=== PATIENT | male | born 1940 | race Caucasian/White ===

== ENCOUNTER → 2019-08-18 11:43 | Outpatient (CLI) | payer MEDICARE, SELFPAY ==
[2019-08-18 13:03] LABS: Add Manual Diff / Slide Review NO; Basophils Absolute Auto 100 /uL (0-100); Basophils Percent Auto 1.3 % (0-2); Eosinophils Absolute Auto 100 /uL (0-450); Eosinophils Percent Auto 1.8 % (2-4); Hematocrit 41.8 % (41-53); Hemoglobin 14.2 g/dL (13.5-17.5); Lymphocytes Absolute Auto 1300 /uL (1100-4500); Lymphocytes Percent Auto 23.9 % (25-40); Mean Corpuscular Hemoglobin 31.5 PG (26-34); Mean Corpuscular Volume 92.7 fL (80-100); Monocytes Absolute Auto 700 /uL (0-900); Monocytes Percent Auto 12.6 % (3-14); Neutrophils Absolute Auto 3200 /uL (1500-7000); Neutrophils Percent Auto 60.4 % (50-75); Platelet Count 120 X10^3/uL (150-400); Red Cell Distribution Width 13.7 % (11.6-14.8); White Blood Cell Count 5.3 X10^3/uL (4.5-11.0)
[2019-08-18 14:06] LABS: Alanine Aminotransferase 12 IU/L (<50); Albumin Globulin Ratio 1.7 (1.0-2.8); Alkaline Phosphatase 78 U/L (38-126); Aspartate Aminotransferase 18 IU/L (17-59); BUN Creatinine Ratio 16.7 (6-22); Bilirubin Total 0.5 mg/dL (0.2-1.3); Blood Urea Nitrogen 20 mg/dL (9-20); Carbon Dioxide 26 mmol/L (22-32); Chloride 107 mmol/L (98-107); Estimated Glomerular Filt Rate 58.7 mL/min (>60); Globulin 2.4 g/dL (1.7-4.1); Glucose 79 mg/dL (80-110); HEMOLYSIS < 15 (0-50); Potassium 4.5 mmol/L (3.4-5.1); Sodium 140 mmol/L (137-145); Total Protein 6.4 g/dL (6.3-8.2)
[2019-08-18 14:35] LABS: TSH w/ Reflex to FT4 1.38 uIU/mL (0.47-4.68)
[2019-08-18 14:55] LABS: Vitamin B12 964 pg/mL (239-931)
[2019-08-22 16:12] LABS: Levetiracetam Keppra 15.3 mcg/mL (12.0-46.0)
== END ==
PROVIDERS: PCP Internal Medicine; Visit Provider Internal Medicine
DX: G40.509 Epileptic seizures related to external causes, not intractable, without status epilepticus (principal); E53.8 Deficiency of other specified B group vitamins; G25.2 Other specified forms of tremor
CPT/HCPCS: 36415; 80053; 80177; 82607; 84443; 85025

== ENCOUNTER → 2020-06-28 16:08 | Outpatient (ROUT) | payer MEDICARE, SELFPAY ==
[2020-06-28 17:13] LABS: Add Manual Diff / Slide Review NO; Basophils Absolute Auto 0 /uL (0-100); Basophils Percent Auto 0.9 % (0-2); Eosinophils Absolute Auto 100 /uL (0-450); Eosinophils Percent Auto 1.6 % (2-4); Hemoglobin 14.6 g/dL (13.5-17.5); Lymphocytes Absolute Auto 1200 /uL (1100-4500); Lymphocytes Percent Auto 23.1 % (25-40); Mean Corpuscular Hemoglobin 31.5 PG (26-34); Mean Corpuscular Volume 92.6 fL (80-100); Monocytes Absolute Auto 500 /uL (0-900); Monocytes Percent Auto 10.2 % (3-14); Neutrophils Absolute Auto 3300 /uL (1500-7000); Neutrophils Percent Auto 64.2 % (50-75); Platelet Count 114 X10^3/uL (150-400); Red Blood Cell Count 4.64 X10^6/uL (4.5-5.9); Red Cell Distribution Width 13.7 % (11.6-14.8); White Blood Cell Count 5.2 X10^3/uL (4.5-11.0)
[2020-06-28 17:15] LABS: Alanine Aminotransferase 14 IU/L (<50); Albumin 3.9 g/dL (3.5-5.0); Albumin Globulin Ratio 1.4 (1.0-2.8); Alkaline Phosphatase 100 U/L (38-126); Aspartate Aminotransferase 21 IU/L (17-59); BUN Creatinine Ratio 18.2 (6-22); Bilirubin Total 0.6 mg/dL (0.2-1.3); Blood Urea Nitrogen 20 mg/dL (9-20); Calcium 8.5 mg/dL (8.4-10.2); Carbon Dioxide 29 mmol/L (22-32); Chloride 107 mmol/L (98-107); Estimated Glomerular Filt Rate > 60.0 mL/min (>60); Globulin 2.7 g/dL (1.7-4.1); Glucose 126 mg/dL (80-110); HEMOLYSIS < 15 (0-50); Sodium 142 mmol/L (137-145); Total Protein 6.6 g/dL (6.3-8.2)
[2020-06-28 17:45] LABS: TSH w/ Reflex to FT4 1.79 uIU/mL (0.47-4.68)
== END ==
PROVIDERS: PCP Internal Medicine; Visit Provider Internal Medicine
DX: G40.509 Epileptic seizures related to external causes, not intractable, without status epilepticus (principal)
CPT/HCPCS: 80053; 80177; 84443; 85025

== ENCOUNTER → 2020-08-29 16:51 | Outpatient (CLI) | payer MEDICARE, SELFPAY ==
[2020-08-29 17:32] LABS: Influenza A - CEPHEID Flu A NEGATIVE (NEGATIVE); Influenza B - CEPHEID Flu B NEGATIVE (NEGATIVE)
[2020-08-29 17:52] LABS: COVID19 -Nasal RAPID Negative (Negative)
== END ==
PROVIDERS: PCP Internal Medicine; Visit Provider Physician Assistant
DX: Z11.59 Encounter for screening for other viral diseases (principal); R05 Cough; R53.83 Other fatigue
CPT/HCPCS: 87502; 87635

== ENCOUNTER 2020-08-29 16:56 | Emergency (ER) | payer MEDICARE, SELFPAY ==
[2020-08-29 17:09] VITALS: BP 123/70; PULSE 76; RESP 16; TEMP 36.7; O2SAT 98
--- NOTE | 2020-08-29 17:45 | DI.RAD.S_ITS ---
PROCEDURE: XR CHEST 2V INDICATIONS: Cough TECHNIQUE: 2 views of the chest were acquired. COMPARISON: DIEUDONNE Esquivel, CHEST 2 VIEW, 09/16/2011, 9:34. FINDINGS: Surgical changes and devices: None. Lungs and pleura: Scattered subsegmental scarring and/or atelectasis. No acute consolidation. High-density presumed calcified granuloma projects in the left upper lobe. No pleural effusions or pneumothorax. Mediastinum: Mediastinal contours are normal. Heart size is normal. Bones and chest wall: No suspicious bony abnormalities. Soft tissues appear unremarkable. IMPRESSION: No acute disease. Dictated by: Ozzie Dow M.D. on 08/29/2020 at 18:11 Approved by: Ozzie Dow M.D. on 08/29/2020 at 18:11
[2020-08-29 18:30] VITALS: PULSE 63; O2SAT 94
[2020-08-29 18:37] VITALS: O2SAT 93
[2020-08-29 18:41] VITALS: BP 117/60
--- NOTE | 2020-08-29 19:39 | ED_ITS ---
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 Patient's states that she noticed a small cough intermittently throughout the day that started last evening and he has coughed a few times throughout the day. She states she was worried about COVID-19, last time he had a cough he developed a sinus infection. She also stated he took a longer nap today and ate less at lunchtime.. Patient's denies any other symptoms such as fever, vomiting, diarrhea, or any increased confusion. Influenza and COVID 19 swab was done at the walk-in clinic. Related Data Home Medications Medication Instructions Recorded Confirmed ASCORBIC ACID (#VITAMIN C) 500 mg PO TID #0 09/16/11 CYANOCOBALAMIN (VITAMIN B-12) 1,000 mcg SUBLINGUAL QDAY #0 09/16/11 (Vitamin B-12) LUTEIN EXTRACT/ZEAXANTHIN EXT 1 sgl PO #0 09/16/11 (Lutein 15 MG Softgel) donepezil [Aricept] 10 mg PO QDAY #0 09/16/11 Review of Systems <RUBEN Philip - Last Filed: 08/29/20 20:45> Review of Systems Narrative: REVIEW OF SYSTEMS: GENERAL: Denies fevers. HENT: No head trauma. RESPIRATORY: Reports cough, see HPI. GASTROINTESTINAL: No nausea, vomiting, diarrhea, or constipation. MUSCULOSKELETAL: No injury. INTEGUMENTARY: No rash. NEURO: No increased confusion. Patient History <RUBEN Philip - Last Filed: 08/29/20 20:45> Medical History Dementia Social History Smoking Status: Never smoker Smoking Status: Never smoker alcohol intake frequency: other Substance Use Type: does not use Exam <RUBEN Philip - Last Filed: 08/29/20 20:45> Initial Vital Signs Initial Vital Signs: Vital Signs Temperature 98.1 F 08/29/20 17:09 Pulse Rate 76 08/29/20 17:09 Respiratory Rate 16 08/29/20 17:09 Blood Pressure 123/70 08/29/20 17:09 Pulse Oximetry 98 08/29/20 17:09 PHYSICAL EXAMINATION: GENERAL: Awake, alert. Oriented to person. Orientation is patient's baseline per . HENT: Normocephalic, atraumatic. Oropharynx without erythema. EYES: Conjunctiva pink, sclera white, no periorbital swelling. No discharge. CHEST: Normal to inspection and without deformities. CARDIOVASCULAR: S1 and S2 sounds normal. Regular rate and rhythm, no murmurs, clicks, or bruits. RESPIRATORY: Normal respiratory rate, trachea midline, airway patent. No stridor, nasal flaring or accessory muscle use. Able to speak in full sentences. Lungs are clear in all jalloh without wheeze, rhonchi, or crackles. No cough observed. MUSCULOSKELETAL: Normal gait and coordination. Equal tone and mass bilaterally. ABD: Abdomen soft and nontender. EXTREMITIES: Moves all extremities. SKIN: Warm, dry, soft, appropriate color for ethnicity. No lesions, rashes, or wounds to visualized areas. NEURO: Alert. <Valeria Girard DO - Last Filed: 08/30/20 07:40> Initial Vital Signs Initial Vital Signs: Vital Signs Temperature 98.1 F 08/29/20 17:09 Pulse Rate 76 08/29/20 17:09 Respiratory Rate 16 08/29/20 17:09 Blood Pressure 123/70 08/29/20 17:09 Pulse Oximetry 98 08/29/20 17:09 Course <RUBEN Philip - Last Filed: 08/29/20 20:45> Orders Ordered: ED Orders 08/29/20 17:45 XR chest 2V Stat Vital Signs Vital signs: Vital Signs - 8 hr 08/29/20 17:09 08/29/20 18:30 08/29/20 18:37 Temperature 98.1 F Pulse Rate 76 63 Respiratory Rate 16 Blood Pressure 123/70 Pulse Oximetry 98 94 93 08/29/20 18:41 Temperature Pulse Rate Respiratory Rate Blood Pressure 117/60 Pulse Oximetry <Valeria C WalkernikiDO - Last Filed: 08/30/20 07:40> Orders Ordered: ED Orders 08/29/20 17:45 XR chest 2V Stat Vital Signs Vital signs: Vital Signs - 8 hr 08/29/20 17:09 08/29/20 18:30 08/29/20 18:37 Temperature 98.1 F Pulse Rate 76 63 Respiratory Rate 16 Blood Pressure 123/70 Pulse Oximetry 98 94 93 08/29/20 18:41 Temperature Pulse Rate Respiratory Rate Blood Pressure 117/60 Pulse Oximetry [facility] - URI/Sore Throat <RUBEN Philip - Last Filed: 08/29/20 20:45> Medical Records Attestation: I reviewed the patient's medical records. Lab Data Attestation: I reviewed the patient's lab results. Imaging Data Chest x-ray: Radiologist's Impression: [address] [id number] ReportSigned Patient: Sujit Allen LMR#: [id number]: 2Acct:[id number]/Sex: 80 / MDate of Service: 08/29/20Loc: EDAccession Number: [id number] Procedure: XR chest 2V Ordering Provider: Amarilys Ge PROCEDURE: XR CHEST 2V INDICATIONS: Cough TECHNIQUE: 2 views of the chest were acquired. COMPARISON: DIEUDONNE Esquivel, CHEST 2 VIEW, 09/16/2011, 9:34. FINDINGS: Surgical changes and devices: None. Lungs and pleura: Scattered subsegmental scarring and/or atelectasis. No acute consolidation. High-density presumed calcified granuloma projects in the left upper lobe. No pleural effusions or pneumothorax. Mediastinum: Mediastinal contours are normal. Heart size is normal. Bones and chest wall: No suspicious bony abnormalities. Soft tissues appear unremarkable. IMPRESSION: No acute disease. Dictated by: Ozzie Dow M.D. on 08/29/2020 at 18:11 Approved by: Ozzie Dow M.D. on 08/29/2020 at 18:11 [facility] Narrative Medical decision making narrative: 80-year-old male presenting to the emergency department for a cough. 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 Patient is hemodynamically stable, afebrile, non tachycardic, oxygen saturation within normal limits. states is at baseline mentation. He is negative for influenza and COVID-19 which was swabbed the clinic. Chest x-rays negative for any concerning infectious etiology. I discussed with life that this is most likely viral given nontoxic appearance, mild symptoms, and short duration since onset of symptoms. No antibiotics warranted at this time. Less concern for other etiology such as abdominal issues due to lack of abdominal pain, no vomiting, no increased confusion, or any other concerns. Return precautions given for new or worsening symptoms. Patient agreed to plan of care verbalized understanding. Discharge Plan Departure Patient Disposition: Home Clinical Impression: Cough Instructions: DI for Cough -- Adult Activity Restrictions/Additional Instructions: Thank you for entrusting me with your care today. As discussed, your chest x- ray, COVID test and influenza tests are negative. I suspect this is most likely just a virus. Please follow-up with your primary care provider in the next week for further evaluation. Return emergency department for any new or worsening symptoms. Prescriptions: No Action donepezil [Aricept] 10 MG tablet 10 mg PO QDAY Qty: 0 RF: 0 LUTEIN EXTRACT/ZEAXANTHIN EXT (Lutein 15 MG Softgel) 1 sgl PO Qty: 0 RF: 0 ASCORBIC ACID (#VITAMIN C) 500 mg PO TID Qty: 0 RF: 0 CYANOCOBALAMIN (VITAMIN B-12) (Vitamin B-12) 1,000 mcg Sublingual QDAY Qty: 0 RF: 0 Referrals: Willard Frey MD [Primary Care Provider] - <Valeria Girard DO - Last Filed: 08/30/20 07:40> Cosign ED Attending Cosignature Attestation: I was immediately available in the department for consultation. This documentation has been reviewed and I agree with assessment and plan. Supervised by Valeria Girard DO
== END 2020-08-29 18:57 | disposition home or self-care (01) ==
PROVIDERS: Emergency Provider Nurse Practitioner; PCP Internal Medicine
DX: R05 Cough (principal); F03.90 Unspecified dementia, unspecified severity, without behavioral disturbance, psychotic disturbance, mood disturbance, and anxiety; R44.3 Hallucinations, unspecified; Z20.828 Contact with and (suspected) exposure to other viral communicable diseases; R53.83 Other fatigue
CPT/HCPCS: 71046; 87502; 87635; 99283

== ENCOUNTER 2021-03-20 21:03 | Emergency (ER) | payer MEDICARE, SELFPAY ==
[2021-03-20] VITALS (30 sets, daily range): BP systolic 104–125; BP diastolic 60–74; PULSE 62–84; RESP 12–18; TEMP 36.4; O2SAT 96–100
--- NOTE | 2021-03-20 21:53 | ED_ITS ---
HPI - General Adult General Chief complaint: Syncope Stated complaint: Syncope Time Seen by Provider: 03/20/21 21:39 Source: EMS Mode of arrival: EMS Limitations: altered mental status History of Present Illness HPI narrative: Patient is a 80-year-old male. Here by EMS for evaluation of altered mental status. He is unable to provide any HPI. Patient's is at bedside and states that he has a history of Lewy body dementia. There has been recent discussion about hospice and there is a PLOST former however it has not been signed by any provider. The patient's did state that the patient would not want any resuscitation if that were to occur. Patient's states that earlier today he seemed to be at his normal state health. He did eat breakfast and lunch today although he did sleep quite a bit in between his meals. She states that this evening she went in to the room and found him sleeping however he was hanging nursing home off the bed. States that she left him alone because she stated that he was ?obviously sleeping. She went into the room later in the day he was not in the bed in the light was also on. She noticed that he was lying on the floor in between the bed and the wall. She was unable to get him up. She was unsure whether not he was actually breathing and he would not respond to her. She called EMS because of this. There was telephonic CPR initiated however when EMS arrived this was not continued. There is no signs of trauma. Patient was maintaining his airway. Had a discussion with the regarding will we should do in the emergency department as far as workup and she stated that she would like to have studies performed to try to figure out what was going on. Related Data Home Medications Medication Instructions Recorded Confirmed ASCORBIC ACID (#VITAMIN C) 500 mg PO TID #0 09/16/11 CYANOCOBALAMIN (VITAMIN B-12) 1,000 mcg SUBLINGUAL QDAY #0 09/16/11 (Vitamin B-12) LUTEIN EXTRACT/ZEAXANTHIN EXT 1 sgl PO #0 09/16/11 (Lutein 15 MG Softgel) donepezil 10 mg tablet (Aricept) 10 mg PO QDAY #0 09/16/11 Review of Systems Review of Systems ROS Unobtainable: Unobtainable due to mental status/LOC Patient History Medical History Dementia Lewy body dementia Social History Smoking Status: Never smoker Smoking Status: Never smoker alcohol intake frequency: other Substance Use Type: does not use Exam Initial Vital Signs Initial Vital Signs: Vital Signs Temperature 97.5 F L 03/20/21 21:05 Pulse Rate 62 03/20/21 21:05 Respiratory Rate 18 03/20/21 21:05 Blood Pressure 122/69 03/20/21 21:05 Pulse Oximetry 96 03/20/21 21:05 Const General: well developed, well groomed and No acute distress HENMT Head: normal to inspection and normocephalic Eyes Pupils: PERRL and pupil size bilaterally 4 Neck Neck: normal visual inspection Chest Chest: No crepitus Resp Effort & Inspection: normal respiratory effort and not tachypneic Auscultation: clear to auscultation bilaterally Cardio Rate: regular rate Rhythm: regular rhythm GI Inspection: non-distended Palpation: soft Skin General: no rashes or lesions noted Neuro Other: Patient did not speak. Did not open his eyes. Did not move any extremities to command. Extrem General: normal to inspection and capillary refill normal Psych Appearance: grossly normal and well kempt Scores GCS Pedro Luis coma scale eye opening: None Rosalie coma scale verbal response: Sounds Pedro Luis coma scale motor response: Localising Rosalie coma scale total score: 8 Course Orders Ordered: ED Orders 03/20/21 21:54 CT head/brain wo con Stat 03/20/21 22:22 Complete Blood Count AUTO DIFF Stat Comprehensive Metabolic Panel Stat Ethanol (ETOH) Stat Lipase Stat 03/20/21 23:21 CT angio head and neck Stat Vital Signs Vital signs: Vital Signs - 8 hr 03/20/21 21:50 03/20/21 21:55 03/20/21 22:00 Pulse Rate 62 64 64 Respiratory Rate 12 12 13 Blood Pressure 112/70 113/69 Pulse Oximetry 96 96 96 03/20/21 22:20 03/20/21 22:25 03/20/21 22:30 Pulse Rate 66 64 68 Respiratory Rate 14 13 14 Blood Pressure 114/66 105/67 104/67 Pulse Oximetry 100 100 100 03/20/21 22:35 03/20/21 22:40 03/20/21 22:45 Pulse Rate 71 66 75 Respiratory Rate 15 18 15 Blood Pressure 115/74 113/70 107/60 Pulse Oximetry 99 97 03/20/21 22:50 03/20/21 22:55 03/20/21 23:00 Pulse Rate 67 68 69 Respiratory Rate 14 15 14 Blood Pressure 104/63 105/65 107/68 Pulse Oximetry 97 96 96 03/20/21 23:05 03/20/21 23:10 03/20/21 23:15 Pulse Rate 71 84 73 Respiratory Rate 14 16 15 Blood Pressure 112/71 106/68 105/63 Pulse Oximetry 96 97 96 03/20/21 23:20 03/20/21 23:25 03/20/21 23:41 Pulse Rate 71 67 69 Respiratory Rate 13 13 15 Blood Pressure 105/65 106/64 Pulse Oximetry 96 96 96 03/20/21 23:51 03/21/21 00:00 03/21/21 00:30 Pulse Rate 72 76 66 Respiratory Rate 14 13 15 Blood Pressure 109/67 115/67 108/68 Pulse Oximetry 96 97 95 03/21/21 01:46 Pulse Rate 68 Respiratory Rate 20 Blood Pressure 110/69 Pulse Oximetry 97 Medical Decision Making Lab Data Lab results reviewed: Yes I reviewed the patient's lab results. Result diagrams: 03/20/21 22:22 03/20/21 22:22 Labs: Lab Results 03/20/21 03/20/21 Range/Units 22:22 22:22 WBC 7.7 (4.5-11.0) X10^3/uL RBC 4.89 (4.5-5.9) X10^6/uL Hgb 15.2 (13.5-17.5) g/dL Hct 45.0 (41-53) % MCV 92.0 (80-100) fL MCH 31.1 (26-34) PG MCHC 33.8 (30-36) % RDW 13.4 (11.6-14.8) % Plt Count 128 L (150-400) X10^3/uL Neut % (Auto) 69.1 (50-75) % Lymph % (Auto) 21.3 L (25-40) % [place] % (Auto) 8.1 (3-14) % Eos % (Auto) 1.1 L (2-4) % Baso % (Auto) 0.4 (0-2) % Neut # (Auto) 5300 (5656-1015) /uL Lymph # (Auto) 1600 (5633-5510) /uL [place] # (Auto) 600 (0-900) /uL Eos # (Auto) 100 (0-450) /uL Baso # (Auto) 0 (0-100) /uL Sodium 140 (137-145) mmol/L Potassium 4.0 (3.4-5.1) mmol/L Chloride 109 H (98-107) mmol/L Carbon Dioxide 25 (22-32) mmol/L BUN 17 (9-20) mg/dL Creatinine 1.16 (0.66-1.25) mg/dL Estimated GFR > 60.0 (>60) mL/min BUN/Creatinine Ratio 14.7 (6-22) Glucose 97 (80-110) mg/dL Calcium 9.3 (8.4-10.2) mg/dL Total Bilirubin 0.6 (0.2-1.3) mg/dL AST 20 (17-59) IU/L ALT 14 (<50) IU/L Alkaline Phosphatase 93 (38-126) U/L Total Protein 6.7 (6.3-8.2) g/dL Albumin 4.1 (3.5-5.0) g/dL Globulin 2.6 (1.7-4.1) g/dL Albumin/Globulin Ratio 1.6 (1.0-2.8) Lipase 511 H (23-300) U/L Ethyl Alcohol < 10 ( - 10) mg/dL Imaging Data CT scan - head: Radiologist's Impression: No acute hemorrhage or definite acute infarct Questionable hyperdense right middle cerebral artery follow-up as clinically warranted CTA - brain/neck: Radiologist's Impression: No arterial occlusion is identified. Specifically the right mid cerebral artery is patent ECG Data Attestation: I personally reviewed and interpreted this ECG as follows: Interpretation: Sinus rhythm Ventricular rate is 65 Left axis deviation Normal QRS Normal QTC No ST T wave changes MDM Narrative Medical decision making narrative: Initial arrival there was no signs of trauma however the patient was unable to provide any HPI. Patient would not open his eyes. Only had sounds and did respond to pain but he was maintaining his airway. Labs are unremarkable. CT scan of the head potentially showed some issues with the middle cerebral artery. I did discuss the case with the radiologist who thought that this was an artifact however he could not 100% say this for certain. I had a further discussion with the family at bedside I am about this and after this discussion the decision was made to obtain a CTA for further evaluation. This was subsequently unremarkable. While we were waiting for the CT to result the patient's stated that she was able to ?wake him up ?the patient was able to sit at bedside. He was able to walk to the bathroom with assistance. He continued to maintain his own airway and the family states he was back to his baseline mental status. Unsure of the exact etiology of the patient's symptoms. He has had a seizure in the past and this could be the cause of his symptoms. There does not appear to be any indication of a stroke. There was no head bleed. Does not appear to be an electrolyte/blood sugar issue. We will hold on further workup for now. Will have the patient's contact his primary provider for follow-up. They were given return precautions. They expressed understanding and agreement. Discharge Plan Departure Patient Disposition: Home Clinical Impression: Acute alteration in mental status Instructions: How to Prevent Falls Activity Restrictions/Additional Instructions: I recommend that he continue all of his medications as directed. Tomorrow contact his primary provider for a follow-up. Return to the emergency department for any new or worsening symptoms Prescriptions: No Action donepezil [Aricept] 10 MG tablet 10 mg PO QDAY Qty: 0 RF: 0 LUTEIN EXTRACT/ZEAXANTHIN EXT (Lutein 15 MG Softgel) 1 sgl PO Qty: 0 RF: 0 ASCORBIC ACID (#VITAMIN C) 500 mg PO TID Qty: 0 RF: 0 CYANOCOBALAMIN (VITAMIN B-12) (Vitamin B-12) 1,000 mcg Sublingual QDAY Qty: 0 RF: 0 Referrals: Willard Frey MD [Primary Care Provider] -
--- NOTE | 2021-03-20 21:54 | DI.CT.S_ITS ---
PROCEDURE: CT HEAD/BRAIN WO CON INDICATIONS: Altered mental status TECHNIQUE: Noncontrast 4.5 mm thick angled axial sections acquired from the foramen magnum to the vertex, with coronal and sagittal reformats. For radiation dose reduction, the following was used: automated exposure control, adjustment of mA and/or kV according to patient size. COMPARISON: [facility], CT, CT HEAD WITHOUT CONTRAST, 11/12/2018, 0:17. FINDINGS: Image quality: Excellent. CSF spaces: Basal cisterns are patent. No extra-axial fluid collections. The ventricles are symmetric in size and shape. Brain: No intracranial bleeds or masses. There is cerebral volume loss for age, with resultant ventricular and sulcal prominence. There are periventricular and deep white matter chronic small vessel ischemic changes. There is intracranial internal carotid artery atherosclerosis. Possible hyperdense right middle cerebral artery M1 segment. Skull and face: Calvarium and visualized facial bones appear intact, without suspicious lesions. Sinuses: Visualized sinuses and mastoids are clear. IMPRESSION: Possible hyperdense right middle cerebral artery M1 segment. Note intracranial hemorrhage, mass, or subacute ischemic injury is found. MR or CT angiogram may be warranted depending on the clinical status. Dictated by: Eliseo Guerin M.D. on 03/21/2021 at 7:19 Approved by: Eliseo Guerin M.D. on 03/21/2021 at 7:22
[2021-03-20 22:34] LABS: Add Manual Diff / Slide Review NO; Basophils Absolute Auto 0 /uL (0-100); Basophils Percent Auto 0.4 % (0-2); Eosinophils Absolute Auto 100 /uL (0-450); Eosinophils Percent Auto 1.1 % (2-4); Hemoglobin 15.2 g/dL (13.5-17.5); Lymphocytes Absolute Auto 1600 /uL (1100-4500); Lymphocytes Percent Auto 21.3 % (25-40); Mean Corpuscular HGB Conc 33.8 % (30-36); Mean Corpuscular Hemoglobin 31.1 PG (26-34); Monocytes Absolute Auto 600 /uL (0-900); Monocytes Percent Auto 8.1 % (3-14); Neutrophils Absolute Auto 5300 /uL (1500-7000); Neutrophils Percent Auto 69.1 % (50-75); Platelet Count 128 X10^3/uL (150-400); Red Blood Cell Count 4.89 X10^6/uL (4.5-5.9); Red Cell Distribution Width 13.4 % (11.6-14.8); White Blood Cell Count 7.7 X10^3/uL (4.5-11.0)
[2021-03-20 23:00] LABS: Alanine Aminotransferase 14 IU/L (<50); Albumin 4.1 g/dL (3.5-5.0); Albumin Globulin Ratio 1.6 (1.0-2.8); Alkaline Phosphatase 93 U/L (38-126); Aspartate Aminotransferase 20 IU/L (17-59); BUN Creatinine Ratio 14.7 (6-22); Bilirubin Total 0.6 mg/dL (0.2-1.3); Blood Urea Nitrogen 17 mg/dL (9-20); Calcium 9.3 mg/dL (8.4-10.2); Carbon Dioxide 25 mmol/L (22-32); Chloride 109 mmol/L (98-107); Estimated Glomerular Filt Rate > 60.0 mL/min (>60); Ethanol (ETOH) < 10 mg/dL; Globulin 2.6 g/dL (1.7-4.1); Glucose 97 mg/dL (80-110); HEMOLYSIS 16 (0-50); Lipase 511 U/L (23-300); Sodium 140 mmol/L (137-145); Total Protein 6.7 g/dL (6.3-8.2)
--- NOTE | 2021-03-20 23:21 | DI.CT.S_ITS ---
PROCEDURE: CT ANGIO HEAD AND NECK INDICATIONS: eval for right MCA clot TECHNIQUE: After the administration of intravenous contrast, 1 mm thick sections acquired from the aortic arch through the [place] of [place]. Post-contrast 4.5 mm thick sections then re-acquired from the foramen magnum to the vertex. 3-dimensional vtdhcdm-roxcdrcmd-zdzqpyfimw (MIP) and/or volume rendering reformats were acquired of the central intracranial vasculature and neck separately. COMPARISON: [facility], MR, STROKE PROTOCOL A, 09/17/2009, 11:21. [facility], CT, CT HEAD/BRAIN WO CON, 03/20/2021, 22:03. FINDINGS: Image quality: Excellent. BRAIN: CSF spaces: Ventricles are normal in size and shape. Basal cisterns are patent. No extra-axial fluid collections. Brain: No midline shift. No intracranial bleeds or masses. Lozano-white matter interface appears intact. Skull and face: Calvarium and facial bones appear intact, without suspicious lesions. Orbits appear normal. Sinuses: Sinuses and mastoids are clear. HEAD CT ANGIOGRAPHY: Anterior circulation: Intracranial internal carotid arteries are normal in size and flow. The flow within the paired anterior cerebral arteries is normal and symmetric. The flow within the middle cerebral arteries is normal and symmetric. The anterior communicating artery is seen. No aneurysms are seen. Posterior circulation: Visualized portions of the vertebral arteries demonstrate normal caliber, and join to form a normal appearing basilar artery. Flow within the posterior cerebral arteries is normal and symmetric. No aneurysms are seen. NECK CT ANGIOGRAPHY: Carotid system: The great vessels demonstrate a conventional anatomy as they arise from the aortic arch. The origins of the common carotid arteries appear patent. The common carotid arteries demonstrate normal caliber and courses. The bifurcation regions are both widely patent. The internal carotid arteries demonstrate normal calibers and courses. Posterior circulation: The origins of the vertebral arteries both appear widely patent. The more superior extracranial portions of both vertebral arteries also demonstrate normal courses and calibers. They join to form a normal appearing basilar artery. Soft tissues: Visualized neck soft tissues demonstrate no suspicious abnormalities except at the right thyroid lobe which is asymmetrically enlarged at 3.5 cm AP,. Bones: No suspicious bony lesions. Visualized cervical spine appears normally aligned. IMPRESSION: 1. No thrombus identified within the M1 segment right middle cerebral artery. This area was suspected to contain acute clot on head CT scanning earlier same day. This study documents that the vessel is patent and the relatively high density appearance was an artifact of positioning. 2. The right thyroid lobe is found to be enlarged, with very slight leftward shift of the tracheal airway immediately adjacent. No significant tracheal airway stenosis is associated. This enlargement was not present on prior MR stroke protocol performed 09/17/09 and is considered likely a manifestation of interval development of a large solid mass that occupies the upper 2/3 of the gland. Follow-up thyroid ultrasound is recommended, potential malignancy. These findings were personally called to the emergency room physician at time of this dictation. Any quantitative measurements of stenosis were performed using NASCET criteria. Dictated by: Eliseo Guerin M.D. on 03/21/2021 at 7:55 Approved by: Eliseo Guerin M.D. on 03/21/2021 at 8:06 3.0 cm transverse
[2021-03-21] VITALS: BP 115/67; PULSE 76; RESP 13; O2SAT 97
[2021-03-21 00:30] VITALS: BP 108/68; PULSE 66; RESP 15; O2SAT 95
--- NOTE | 2021-03-21 01:19 | PC.NURSE ---
pt amb to br with 1pa voided in toilet, depends changed
[2021-03-21 01:46] VITALS: BP 110/69; PULSE 68; RESP 20; O2SAT 97
== END 2021-03-21 01:46 | disposition home or self-care (01) ==
PROVIDERS: Emergency Provider Emergency Medicine; PCP Internal Medicine
DX: R41.82 Altered mental status, unspecified (principal); G31.83 Neurocognitive disorder with Lewy bodies; F02.80 Dementia in other diseases classified elsewhere, unspecified severity, without behavioral disturbance, psychotic disturbance, mood disturbance, and anxiety
CPT/HCPCS: 70450; 70496; 70498; 80053; 80320; 83690; 85025; 93005; 99283; 99284; Q9967